=== PATIENT | female | born 1985 | race Hispanic/Latino ===

== ENCOUNTER 2021-02-20 18:37 | Emergency (ER) | payer OTHER ==
[~2021-02-20] VITALS: Ht 152.4 cm; Wt 96.2 kg
[2021-02-20] MEDS ORDERED: SODIUM CHLORIDE 0.9% 1000ML 1,000 ML IV ONE ×2 (18:38→20:00)
[2021-02-20 20:04] LABS: BASOPHILS % (AUTO) 0.7 % (0.0-5.0); EOSINOPHILS % (AUTO) 3.8 % (0.0-8.0); HEMATOCRIT 27.7 % (36-48); LYMPHOCYTES % (AUTO) 31.9 % (21.0-51.0); MEAN CORPUSCULAR HEMOGLOBIN 15.1 pg (27.0-33.0); MEAN CORPUSCULAR HGB CONC 27.1 g/dL (32.0-36.0); MEAN CORPUSCULAR VOLUME 55.6 fL (79-99); MONOCYTES % (AUTO) 8.2 % (3.0-13.0); NEUTROPHILS % (AUTO) 55.1 % (40.0-77.0); PLATELET COUNT (AUTO) 439 K/uL (130-400); RED BLOOD CELL COUNT(AUTO) 4.98 MIL/uL (4.00-5.50); RED CELL DISTRIBUTION WIDTH 24.1 % (11.0-15.5); WHITE BLOOD COUNT (AUTO) 12.2 K/uL (4.8-10.8)
[2021-02-20 20:12] VITALS: BP 151/74
[2021-02-20 20:21] LABS: CREATININE 0.7 mg/dL (0.5-1.5); POTASSIUM 3.8 mmol/L (3.5-5.1)
[2021-02-20 20:22] LABS: INR 1.01 (0.85-1.15)
[2021-02-20 20:38] LABS: ALBUMIN 3.6 g/dL (3.5-5.0); BILIRUBIN,TOTAL 0.3 mg/dL (0.2-1.0); THYROID STIMULATING HORMONE 1.47 uIU/mL (0.36-3.74); TOTAL PROTEIN, SERUM 7.6 g/dL (6.0-8.3)
[2021-02-20 20:48] LABS: APPEARANCE,URINE Clear (CLEAR); BILIRUBIN,URINE Negative (NEGATIVE); COLOR,URINE Yellow (YELLOW); GLUCOSE, URINE (UA) Negative (NEGATIVE); KETONES,URINE Negative (NEGATIVE); LEUKOCYTE ESTERASE ,URINE Negative (NEGATIVE); NITRATE,URINE Negative (NEGATIVE); OCCULT BLOOD,URINE Negative (NEGATIVE); PROTEIN,URINE Negative (NEGATIVE)
[2021-02-20 20:51] LABS: HCG,QUAL RESULT NEGATIVE (NEGATIVE)
[2021-02-20 22:55] VITALS: BP 121/66
== END 2021-02-20 23:15 | disposition home or self-care (01) ==
LOC: EDH 18:37
DX: D64.9 Anemia, unspecified (principal); R53.83 Other fatigue; Z98.890 Other specified postprocedural states
CPT/HCPCS: 36415; 80053; 81003; 81025; 83735; 84443; 84484; 85025; 85610; 86850; 86900; 86901; 93005; 96360; 96361; 99284; J7030